=== PATIENT | male | born 1990 ===

== ENCOUNTER 2018-08-10 11:00 | Emergency (ER) | payer OTHER ==
[2018-08-10 11:20] VITALS: BMI 29.0
[2018-08-10 11:21] VITALS: BP 120/69
[2018-08-10 12:06] LABS: EOS % 0.8 % (1.5-5.0); HEMOGLOBIN 15.3 g/dL (14.0-18.0); LYMPH # 0.7 (1.2-3.4); LYMPH % 18.9 % (22.0-35.0); MEAN CELL VOLUME 89.5 fl (80.0-105.0); MEAN CORPUSCULAR HGB CONC 34.6 g/dl (31.0-37.0); MEAN PLATELET VOLUME 9.3 fl (7.0-11.0); MONO # 0.4 (0.1-0.6); MONO % 11.5 % (1.0-6.0); RBC 4.94 10^6/uL (3.5-6.1); RED CELL DISTRIBUTION WIDTH 12.8 % (11.5-14.5); WHITE BLOOD COUNT 3.8 10^3/uL (4.5-11.0)
--- NOTE | 2018-08-10 12:10 | ED PDOC ---
Arrival/HPI - General Chief Complaint: Flu-like Symptoms Historian: Patient - History of Present Illness Narrative History of Present Illness (Text): 08/10/18 12:04 27 y/o M, with no significant past medical history, presents to the ED for evaluation of generalized myalgias and fever since past 2 days. Patient informs worsening symptoms this morning after developing sore throat, headache, vomiting and watery diarrhea, prompting him to present to the ED for medical evaluation. Patient reports fever with Tmax of 105 F, mildly improved after taking Motrin last night at home. Patient denies any other associated somatic complaints. Patient denies any dizziness, chest pain, shortness of breath, dyspnea on exertion, cough, abdominal pain, back pain, neck pain, syncopal episode or any other complaints. Patient denies any recent sick contact or any recent travel. Time/Duration: < week Symptom Onset: Gradual Symptom Course: Unchanged Activities at Onset: Light Context: Home Past Medical History - Provider Review Nursing Documentation Reviewed: Yes - Infectious Disease Hx of Infectious Diseases: None - Psychiatric Hx Substance Use: No - Anesthesia Hx Anesthesia: No Hx Anesthesia Reactions: No Hx Malignant Hyperthermia: No Family/Social History - Physician Review Nursing Documentation Reviewed: Yes Family/Social History: Unknown Family HX Smoking Status: Former Smoker Hx Alcohol Use: Yes Frequency of alcohol use: Socially Hx Substance Use: No Allergies/Home Meds Allergies/Adverse Reactions: Allergies No Known Allergies Allergy (Verified 04/18/15 11:16) Review of Systems - Physician Review All systems were reviewed & negative as marked: Yes - Review of Systems Constitutional: Fevers ENT: Sore Throat Respiratory: absent: SOB, Cough Cardiovascular: absent: Chest Pain, BUI Gastrointestinal: Diarrhea, Nausea, Vomiting. absent: Abdominal Pain Genitourinary Male: absent: Dysuria, Urinary Output Changes Musculoskeletal: absent: Back Pain, Neck Pain Skin: absent: Rash Neurological: absent: Headache, Dizziness Psychiatric: absent: Anxiety Physical Exam Vital Signs Reviewed: Yes Vital Signs Temp Pulse Resp BP Pulse Ox 08/10/18 11:44 102.8 F H 08/10/18 11:20 102.8 F H 113 H 20 120/69 95 Temperature: Febrile Blood Pressure: Normal Pulse: Tachycardic Respiratory Rate: Normal Appearance: Positive for: Well-Appearing, Non-Toxic, Comfortable Pain Distress: None Mental Status: Positive for: Alert and Oriented X 3 - Systems Exam Head: Present: Atraumatic, Normocephalic Pupils: Present: PERRL Extroacular Muscles: Present: EOMI Conjunctiva: Present: Normal Mouth: Present: Moist Mucous Membranes Pharnyx: Present: ERYTHEMA. No: EXUDATE, TONSILS ENLARGED, Uvular Deviation Neck: Present: Normal Range of Motion. No: Meningeal Signs, MIDLINE TENDERNESS Respiratory/Chest: Present: Clear to Auscultation, Good Air Exchange. No: Respiratory Distress, Accessory Muscle Use Cardiovascular: Present: Regular Rate and Rhythm, Normal S1, S2. No: Murmurs Abdomen: No: Tenderness, Distention, Peritoneal Signs Upper Extremity: Present: Normal Inspection. No: Cyanosis, Edema Lower Extremity: Present: Normal Inspection. No: Edema Neurological: Present: GCS=15, Speech Normal Skin: Present: Warm, Dry, Normal Color. No: Rashes Psychiatric: Present: Alert, Oriented x 3, Normal Insight, Normal Concentration Medical Decision Making ED Course and Treatment: 08/10/18 11:28 Impression: 27 year old male presents to the ED for evaluation of flu-like symptoms. Differential Diagnosis included but are not limited to: -- Strep Pharyngitis -- Viral Pharyngitis -- Influenza -- Acute Rhinosinusitis Plan: -- Labs -- Chest X-ray -- Tylenol -- Zofran -- Influenza A B -- Rapid Strep -- Urinalysis -- Reassess and disposition Prior Visits: Notes and results from previous visits were reviewed. Progress Notes: 08/10/18 12:39 Labs reviewed with no evidence of leukocytosis or electrolyte abnormalities. Rapid flu positive for influenza A. Tamiflu ordered. Patient updated on information and advised to take medications as prescribed. - Lab Interpretations Lab Results: 08/10/18 11:42 08/10/18 11:42 Lab Results 08/10/18 11:42: Influenza Typ A,B (EIA) Pos for influenza a H 08/10/18 11:42: Sodium 137, Potassium 4.0, Chloride 100, Carbon Dioxide 29, Anion Gap 12, BUN 11, Creatinine 1.0, Est GFR ( Amer) > 60, Est GFR (Non- Af Amer) > 60, Random Glucose 84, Calcium 8.9, Total Bilirubin 0.8, AST 34, ALT 32, Alkaline Phosphatase 89, Total Protein 7.9, Albumin 4.6, Globulin 3.3, Albumin/Globulin Ratio 1.4 08/10/18 11:42: WBC 3.8 L, RBC 4.94, Hgb 15.3, Hct 44.2, MCV 89.5, MCH 31.0, MCHC 34.6, RDW 12.8, Plt Count 128, MPV 9.3, Neut % (Auto) 68.8 H, Lymph % (Auto) 18.9 L, Ramsey % (Auto) 11.5 H, Eos % (Auto) 0.8 L, Baso % (Auto) 0.0, Lymph # (Auto) 0.7 L, Ramsey # (Auto) 0.4, Eos # (Auto) 0.0, Baso # (Auto) 0.00, Absolute Neuts (auto) 2.58 08/10/18 11:42: Grp A Beta Strep Ag Negative I have reviewed the lab results: Yes - RAD Interpretation Narrative RAD Interpretations (Text): 08/10/18 13:04 Chest X-ray reviewed by radiologist, shows: FINDINGS: LUNGS: No active pulmonary disease. PLEURA: No significant pleural effusion identified, no pneumothorax apparent. CARDIOVASCULAR: No aortic atherosclerotic calcification present. Normal cardiac size. No pulmonary vascular congestion. OSSEOUS STRUCTURES: No significant abnormalities. VISUALIZED UPPER ABDOMEN: Normal. OTHER FINDINGS: None. IMPRESSION: No active disease. Radiology Orders: 08/10/18 11:28 CHEST PORTABLE [RAD] Stat Sensory Scientist: Radiologist - Medication Orders Current Medication Orders: Discontinued Medications Acetaminophen (Tylenol 325mg Tab) 650 mg PO STAT STA Stop: 08/10/18 11:28 Last Admin: 08/10/18 11:44 Dose: 650 mg MAR Pain/Vitals Document 08/10/18 11:44 OCS (Rec: 08/10/18 11:44 OCS [id number]) Vitals Temperature (97.6 F-99.6 F) 102.8 F Temperature Source Oral - Scribe Statement The provider has reviewed the documentation as recorded by the Scribe Batsheva Mina. All medical record entries made by the Scribe were at my direction and personally dictated by me. I have reviewed the chart and agree that the record accurately reflects my personal performance of the history, physical exam, medical decision making, and the department course for this patient. I have also personally directed, reviewed, and agree with the discharge instructions and disposition. Disposition/Present on Arrival - Present on Arrival Any Indicators Present on Arrival: No History of DVT/PE: No History of Uncontrolled Diabetes: No Urinary Catheter: No History of Decub. Ulcer: No History Surgical Site Infection Following: None - Disposition Have Diagnosis and Disposition been Completed?: Yes Diagnosis: Influenza A Disposition: HOME/ ROUTINE Disposition Time: 12:43 Patient Plan: Discharge Patient Problems: Current Active Problems Problem Status Onset Influenza A Acute Condition: STABLE Discharge Instructions (ExitCare): Flu, Adult (DC) Print Language: GUAMANIAN Additional Instructions: All medical record entries made by the Scribe were at my direction and personally dictated by me. I have reviewed the chart and agree that the record accurately reflects my personal performance of the history, physical exam, medical decision making, and the department course for this patient. I have also personally directed, reviewed, and agree with the discharge instructions and disposition. Please take medications as prescribed Please avoid respiratory secretions coming in contact with any one else in close quarters Prescriptions: Ibuprofen [Motrin] 600 mg PO Q6H #12 tab Oseltamivir Cap [Tamiflu] 75 mg PO BID 5 Days #10 cap Referrals: Gela Rivers MD [Medical Doctor] - [place] up [place] [facility] [place] - Follow up with primary Forms: OM Latam (Mohawk), WORK NOTE
[2018-08-10 12:17] LABS: ALB/GLOB RATIO 1.4 (1.1-1.8); ALBUMIN 4.6 g/dL (3.0-4.8); ALT/SGPT 32 U/L (7-56); AST/SGOT 34 U/L (17-59); BLOOD UREA NITROGEN 11 mg/dL (7-21); CALCIUM 8.9 mg/dL (8.4-10.5); GFR NON-AFRICAN AMERICAN > 60
--- NOTE | 2018-08-10 12:52 | RAD ---
Date of service: 08/10/2018 HISTORY: fever COMPARISON: No prior. FINDINGS: LUNGS: No active pulmonary disease. PLEURA: No significant pleural effusion identified, no pneumothorax apparent. CARDIOVASCULAR: No aortic atherosclerotic calcification present. Normal cardiac size. No pulmonary vascular congestion. OSSEOUS STRUCTURES: No significant abnormalities. VISUALIZED UPPER ABDOMEN: Normal. OTHER FINDINGS: None. IMPRESSION: No active disease.
[2018-08-10 14:01] VITALS: PULSE 92; RESP 18; TEMP 100.6; O2SAT 96
== END 2018-08-10 13:38 | disposition home or self-care (01) ==
LOC: ED 11:00
DX: J10.1 Influenza due to other identified influenza virus with other respiratory manifestations (principal); Z87.891 Personal history of nicotine dependence